=== PATIENT | male | born 1990 | race Caucasian/White ===

== ENCOUNTER 2019-11-01 17:04 | Emergency (ER) | payer OTHER ==
--- NOTE | 2019-11-01 18:31 | EDM.PDOC ---
ED HPI GENERAL MEDICAL PROBLEM - General Chief Complaint: Respiratory Problem Stated Complaint: FEVER AND COUGH AND SIDE PAIN Time Seen by Provider: 11/01/19 18:29 Source of Information: Reports: Patient, RN Notes Reviewed - History of Present Illness INITIAL COMMENTS - FREE TEXT/NARRATIVE: 29-year-old male became ill with cough sore throat congestion 2 days ago. That fever chills myalgias no energy with symptoms worsening yesterday and today. Did not get a flu shot this year Right Back Pain Score (Numeric/FACES): 4 - Related Data Allergies Allergy/AdvReac Type Severity Reaction Status Date / Time prochlorperazine Allergy Cannot Verified 11/01/19 17:27 [From Compazine] Remember Past Medical History - Past Health History Medical/Surgical History: Denies Medical/Surgical History Social & Family History - Tobacco Use Smoking Status *Q: Never Smoker ED ROS GENERAL - Review of Systems Review Of Systems: See Below Constitutional: Reports: Fever, Chills HEENT: Reports: Rhinitis, Throat Pain Respiratory: Reports: Cough, Sputum. Denies: Shortness of Breath Cardiovascular: Reports: Chest Pain GI/Abdominal: Denies: Diarrhea, Vomiting Musculoskeletal: Reports: Other (Neurolyse achiness) Skin: Denies: Rash Neurological: Reports: Headache ED EXAM, GENERAL - Physical Exam Exam: See Below General Appearance: Alert, Mild Distress Eye Exam: Bilateral Eye: PERRL Throat/Mouth: Normal Inspection, Normal Oropharynx Head: Atraumatic Neck: Supple Respiratory/Chest: No Respiratory Distress, Lungs Clear, Normal Breath Sounds. No: Rhonchi, Wheezing Cardiovascular: Regular Rate, Rhythm Extremities: Normal Inspection, Normal Range of Motion Skin Exam: Warm, Dry, Normal Color Course - Vital Signs Last Recorded V/S: Last Vital Signs Temp 100.9 F H 11/01/19 17:24 Pulse 86 11/01/19 18:51 Resp 18 11/01/19 18:51 BP 127/67 11/01/19 18:51 Pulse Ox 95 11/01/19 18:51 - Orders/Labs/Meds Orders: Active Orders 24 hr Category Date Time Status CULTURE STREP A CONFIRMATION [RM] Stat Lab 11/01/19 17:58 Results STREP SCRN A RAPID W CULT CONF [RM] Stat Lab 11/01/19 17:58 Results Meds: Medications Discontinued Medications Generic Name Dose Route Start Last Admin Trade Name Freq PRN Reason Stop Dose Admin Azithromycin 500 mg 11/01/19 19:11 Zithromax PO 11/01/19 19:12 ONETIME ONE - Re-Assessments/Exams Free Text/Narrative Re-Assessment/Exam: 11/01/19 19:21 Flu screen positive for influenza B. X-ray shows increased perihilar markings. Discharge instructions as documented. Departure - Departure Time of Disposition: 19:11 Disposition: Home, Self-Care 01 Condition: Fair Clinical Impression: Bronchitis, Influenza - Discharge Information Referrals: PCP,None [Primary Care Provider] - Forms: ED Department Discharge, ED Return to Work/School Form Additional Instructions: Rest, drink plenty of water to maintain hydration, vaporizer or steam as needed , you can alternate Tylenol and ibuprofen as needed. Zithromax antibiotic as prescribed, next dose tomorrow and continue until gone. Follow-up clinic if not much better within 3 to 4 days as expected. Return to ED as needed. Sepsis Event Note - Evaluation Sepsis Screening Result: No Definite Risk - Focused Exam Vital Signs: Vital Signs Temp Pulse Resp BP Pulse Ox 11/01/19 18:51 86 18 127/67 95 11/01/19 17:24 100.9 F H 86 20 123/82 96 Date Exam was Performed: 11/01/19 Time Exam was Performed: 19:19
--- NOTE | 2019-11-01 19:06 | CR ---
Chest: 2 views of the chest were obtained. Comparison: No prior chest imaging. Minimal areas of atelectasis are believed to be present within the left lung base. Lungs otherwise are clear. Heart size and mediastinum are normal. Bony structures appear within normal limits. Impression: 1. Minimal left basilar atelectasis is felt to be present. 2. Nothing acute is otherwise seen on 2 view chest x-ray. Diagnostic code #2 This report was dictated in [place] Standard Time
[2019-11-01] MEDS ORDERED: Azithromycin 250 MG Tab PO ONE (19:11)
== END 2019-11-01 19:39 | disposition home or self-care (01) ==
LOC: JD.ED 17:04
DX: J11.1 Influenza due to unidentified influenza virus with other respiratory manifestations (principal); J40 Bronchitis, not specified as acute or chronic; Z88.8 Allergy status to other drugs, medicaments and biological substances
CPT/HCPCS: 71046; 87081; 87430; 87804; 99283; A9270